=== PATIENT | male | born 2000 | race Caucasian/White ===

== ENCOUNTER 2022-03-15 00:54 | Emergency (ER) | payer BC ==
[2022-03-15] MEDS ORDERED: Acetaminophen 500 MG Tab PO ONE (01:03)
[2022-03-15] MEDS ORDERED: Lidocaine 1% with EPINEPHrine 1:100,000 20 ML MDV INJECT ONE (01:17)
[2022-03-15] MEDS ORDERED: Diphtheria,Pertussis(Acell),Tetanus Vaccine 0.5 ML Syringe IM ONE (01:24)
== END 2022-03-15 02:12 | disposition left against medical advice (07) ==
LOC: MW.ED 00:54
DX: S01.111A Laceration without foreign body of right eyelid and periocular area, initial encounter (principal); Z23 Encounter for immunization; W01.10XA Fall on same level from slipping, tripping and stumbling with subsequent striking against unspecified object, initial encounter
CPT/HCPCS: 70450; 90471; 90715; 99284; A9270

== ENCOUNTER 2022-03-15 02:51 | Emergency (ER) | payer BC ==
[2022-03-15] MEDS ORDERED: Lidocaine 1% with EPINEPHrine 1:100,000 10 ML MDV INJECT ONE (02:58)
== END 2022-03-15 03:54 | disposition home or self-care (01) ==
LOC: MW.ED 02:51
DX: S01.111A Laceration without foreign body of right eyelid and periocular area, initial encounter (principal); F10.129 Alcohol abuse with intoxication, unspecified; W01.10XA Fall on same level from slipping, tripping and stumbling with subsequent striking against unspecified object, initial encounter
CPT/HCPCS: 12011; 99282; 99283-25

== ENCOUNTER 2023-02-14 17:54 | Emergency (ER) | payer BC, OTHER ==
[2023-02-14] MEDS ORDERED: Ondansetron 4 MG Tab.DIS PO ONE (18:05)
[2023-02-14] MEDS ORDERED: Acetaminophen/HYDROcodone 325-5 MG Tab PO ONE (18:05)
[2023-02-14] MEDS ORDERED: Bacitracin Oint 1 GM U/D Packet TOP ONE (19:08)
[2023-02-14] MEDS ORDERED: Cephalexin 500 MG Cap PO ONE (19:08)
== END 2023-02-14 19:51 | disposition home or self-care (01) ==
LOC: MW.ED 17:54
DX: S90.511A Abrasion, right ankle, initial encounter (principal); S99.911A Unspecified injury of right ankle, initial encounter; F17.210 Nicotine dependence, cigarettes, uncomplicated; V86.56XA Driver of dirt bike or motor/cross bike injured in nontraffic accident, initial encounter; Y92.410 Unspecified street and highway as the place of occurrence of the external cause; Z79.899 Other long term (current) drug therapy
CPT/HCPCS: 73590; 73610; 73620; 99283; A9270

== ENCOUNTER 2023-05-28 17:58 | Emergency (ER) | payer SELFPAY ==
[2023-05-28] MEDS ORDERED: Bacitracin Oint 28.35 GM Tube TOP STA (18:00)
[2023-05-28] MEDS ORDERED: Tetracaine HCl/PF 0.5% 4 ML Bottle EYELF STA (19:59)
[2023-05-28] MEDS ORDERED: Acetaminophen 500 MG Tab PO STA (20:00)
[2023-05-28] MEDS ORDERED: oxyCODONE 5 MG Tab PO STA (20:00)
[2023-05-28] MEDS ORDERED: Ibuprofen 800 MG Tab PO STA (20:00)
== END 2023-05-28 21:11 | disposition home or self-care (01) ==
LOC: MW.ED 17:58
DX: S05.02XA Injury of conjunctiva and corneal abrasion without foreign body, left eye, initial encounter (principal); J45.909 Unspecified asthma, uncomplicated; Z72.0 Tobacco use; Z77.29 Contact with and (suspected) exposure to other hazardous substances; W22.09XA Striking against other stationary object, initial encounter
CPT/HCPCS: 99283; A9270; J3490

== ENCOUNTER 2025-04-12 13:37 | Emergency (ER) | payer SELFPAY ==
[2025-04-12] MEDS: Ketorolac 30 MG/ML SDV IM ONE (14:45)
[2025-04-12] MEDS: Acetaminophen/HYDROcodone 325-10 MG Tab PO ONE (15:58)
== END 2025-04-12 16:02 | disposition home or self-care (01) ==
LOC: MW.ED 13:37
DX: S42.141A Displaced fracture of glenoid cavity of scapula, right shoulder, initial encounter for closed fracture (principal); Z79.899 Other long term (current) drug therapy; V86.56XA Driver of dirt bike or motor/cross bike injured in nontraffic accident, initial encounter; Y93.89 Activity, other specified
CPT/HCPCS: 71045; 73020; 73060; 96372; 99283; A9270; J1885